=== PATIENT | male | born 2000 | race Caucasian/White ===

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

== ENCOUNTER → 2024-09-27 | Outpatient (CLI) | payer OTHER ==
--- NOTE | 2024-09-27 16:38 | US ---
EXAMINATION TYPE: US venous doppler duplex LE RT DATE OF EXAM: 09/27/2024 4:31 PM COMPARISON: NONE CLINICAL INDICATION: Male, 24 years old with history of R22.41 PAIN IN RLE; swelling in right calf. P t was diagnosed with a DVT in June of 2024. Pt is still on blood thinners. Pt denies pain at this time, just swelling, TECHNIQUE: The lower extremity deep venous system is examined utilizing real time linear array sonog rosenda with graded compression, color doppler sonography, and spectral doppler. SIDE PERFORMED: Right FINDINGS: VESSELS IMAGED: Common Femoral Vein Deep Femoral Vein Greater Saphenous Vein * Femoral Vein Popliteal Vein Small Saphenous Vein * Proximal Calf Veins (* superficial vessels) Pt did have DVT in right leg June 2024. Right Leg: Echoes seen from prox femoral vein to mid popliteal vein. These vessels mostly compress a nd there is good blood flow., Color Doppler imaging shows patency of the vessels. Spectral waveforms are within normal limits. IMPRESSION: Nonobstructing thrombus within the right lower extremity may be present. [facility], , 09/27/2024 4:36 PM
== END | disposition home or self-care (01) ==
LOC: RADUSWWP 16:10
PROVIDERS: ATTEND Internal Medicine Hematology & Oncology
DX: R22.41 Localized swelling, mass and lump, right lower limb (principal); Z86.718 Personal history of other venous thrombosis and embolism